=== PATIENT | female | born 1995 | race Caucasian/White ===

== ENCOUNTER 2019-12-04 18:30 | Emergency (ER) | payer MEDICAID ==
[~2019-12-04] VITALS: Ht 160 cm; Wt 77.3 kg
[2019-12-04] MEDS ORDERED: ondansetron 4mg rapidly disintigrating tab PO ONE (19:05)
[2019-12-04] MEDS ORDERED: ibuprofen tablet 400 MG TABLET PO ONE (19:05)
[2019-12-04] MEDS ORDERED: ibuprofen 200mg tablet PO ONE (19:10)
[2019-12-04 19:46] LABS: BASOPHILS % (AUTO) 0.3 % (0-1); EOSINOPHILS % (AUTO) 0 % (0-6); HEMATOCRIT 42.4 % (35.0-45.0); HEMOGLOBIN 14.3 g/dl (12.0-16.0); LYMPHOCYTES # (AUTO) 1.5 X10'3 (1.1-4.8); LYMPHOCYTES % (AUTO) 10.2 % (21-51); MEAN CORPUSCULAR HGB CONC 33.6 g/dL (33.0-36.5); MEAN CORPUSCULAR VOLUME 83.3 FL (78-98); MEAN PLATELET VOLUME 8.2 FL (7.4-10.4); MONOCYTES # (AUTO) 1.6 X10'3 (0-0.9); MONOCYTES % (AUTO) 10.7 % (2-12); NEUTROPHILS # (AUTO) 11.5 X10'3 (1.8-7.7); NEUTROPHILS % (AUTO) 78.8 % (42-75); PLATELET COUNT 179 X10'3 (140-440); RED BLOOD COUNT 5.09 X10'6 (4.20-5.60); RED CELL DISTRIBUTION WIDTH 14.8 % (11.5-14.5); WHITE BLOOD COUNT 14.7 X10'3 (4.5-11.0)
[2019-12-04 19:51] LABS: CLARITY,URINE CLEAR (Clear); GLUCOSE, URINE NEGATIVE (Neg); KETONES,URINE >=80 mg/dl (Neg); LEUKOCYTE ESTERASE ,URINE SMALL (Neg); NITRITES, URINE POSITIVE (Neg); OCCULT BLOOD,URINE MODERATE (Neg); PH,URINE 5.5 (4.8-8.0); PROTEIN,URINE 30 mg/dl (Neg)
[2019-12-04 19:52] LABS: URINE HCG NEGATIVE (NEG)
[2019-12-04 19:53] LABS: COLOR,URINE DARK YELLOW (Yellow); UA COLLECTION TYPE CLN CATCH MIDSTREAM
[2019-12-04 20:01] LABS: SQUAMOUS EPITHELIAL CELL,UR MODERATE /LPF (FEW)
[2019-12-04 20:02] LABS: ALANINE AMINOTRANSFERASE 17 U/L (12-78); ALBUMIN 4.3 G/DL (3.4-5.0); ALKALINE PHOSPHATASE 58 IU/L (46-116); ANION GAP 15 (8-16); ASPARTATE AMINO TRANSFERASE 12 U/L (10-37); BACTERIA,URINE 2+ /HPF (Neg); BILIRUBIN,TOTAL 2.2 MG/DL (0.1-1.0); BLOOD UREA NITROGEN 13 MG/DL (7-18); BUN/CREATININE RATIO 13.1 (6.6-38.0); CALCIUM 9.4 MG/DL (8.5-10.1); CHLORIDE 97 MMOL/L (99-107); CREATININE 0.99 MG/DL (0.40-0.90); GLUCOSE 101 MG/DL (70-104); LIPASE 70 U/L (73-393); MUCUS STRANDS MODERATE /LPF (Neg); POTASSIUM 3.8 MMOL/L (3.5-5.1); SODIUM 135 MMOL/L (135-145); TOTAL CARBON DIOXIDE 23.4 MMOL/L (24-32); TOTAL PROTEIN 8.6 G/DL (6.4-8.2); WBC,URINE 50-100 /HPF (0-4); eGFR 70 ML/MIN
[2019-12-04 20:03] LABS: WBC CLUMPS,URINE FEW /HPF (NEGATIVE)
[2019-12-04] MEDS ORDERED: CefTRIAXone 2gm/D5W 50ml BAG 50 ML IV ONE (20:15)
[2019-12-04] MEDS ORDERED: normal saline 1000ML IV soln IVB ONE (20:15)
[2019-12-04] MEDS ORDERED: CEPH500C5 PO (20:15)
[2019-12-04] MEDS ORDERED: ONDA4TAB6 PO (20:16)
[2019-12-04] MEDS ORDERED: CIPR-230 PO (20:27)
--- NOTE | 2019-12-04 20:30 | NUR ---
PT MOVED FROM FAST TRACK TO MAIN ER BED 14 AND PLACED IN AIRBORN ISOLATION FOR R/O COVID. PT HAS ORDERS TO RECEIVE ROCEFIN AND 1 LITER NS, AND THEN WILL BE DC READY
--- NOTE | 2019-12-04 20:46 | NUR ---
1 LITER NS INFUSING , BOLUS, AND ROCEFIN. PT UPDATED SHE WILL BE READY FOR DC LIKELY WITHIN 45 MINUTES. PT IS POLITE AND COOPERATIVE. DROPPED OFF FOOD FOR HER.
--- NOTE | 2019-12-04 20:49 | NUR ---
PT REPORTS SHE IS HAVING NO SYMPTOMS AT ALL AT THIS TIME.
[2019-12-04 20:50] VITALS: BP 117/78
== END 2019-12-04 21:33 | disposition home or self-care (01) ==
LOC: ER 18:31
DX: J06.9 Acute upper respiratory infection, unspecified (principal); B34.9 Viral infection, unspecified; R05 Cough; R50.9 Fever, unspecified; R11.2 Nausea with vomiting, unspecified; N39.0 Urinary tract infection, site not specified; Z20.828 Contact with and (suspected) exposure to other viral communicable diseases; F17.200 Nicotine dependence, unspecified, uncomplicated; Z72.89 Other problems related to lifestyle; Z79.2 Long term (current) use of antibiotics; Z79.899 Other long term (current) drug therapy
CPT/HCPCS: 36415; 71045; 80053; 81001; 81025; 83605; 83690; 84145; 85025; 87040; 87077; 87088; 87186; 87635; 96365; 99284; J0696; J7030

== ENCOUNTER 2020-06-04 18:02 | Emergency (ER) | payer MEDICAID ==
[~2020-06-04] VITALS: Ht 157.5 cm; Wt 75.0 kg
[~2020-06-04 18:02] MED LIST: ONDA4TAB6 PO
[2020-06-04 18:11] VITALS: BP 136/82
== END 2020-06-04 21:31 | disposition left against medical advice (07) ==
LOC: ER 18:04
DX: R42 Dizziness and giddiness (principal); Z53.21 Procedure and treatment not carried out due to patient leaving prior to being seen by health care provider
CPT/HCPCS: 82948

== ENCOUNTER 2022-05-11 03:35 | Emergency (ER) | payer MEDICAID ==
[2022-05-11] VITALS (9 sets, daily range): BP systolic 104–133; BP diastolic 61–80
[~2022-05-11] VITALS: Ht 162.6 cm; Wt 36.4 kg
[2022-05-11 04:51] LABS: BASOPHILS # (AUTO) 0.1 X10'3 (0-0.2); BASOPHILS % (AUTO) 0.7 % (0-1); EOSINOPHILS # (AUTO) 0.1 X10'3 (0-0.9); EOSINOPHILS % (AUTO) 1.1 % (0-6); HEMATOCRIT 39.6 % (35.0-45.0); HEMOGLOBIN 13.5 g/dl (12.0-16.0); LYMPHOCYTES % (AUTO) 22.7 % (21-51); MEAN CORPUSCULAR HEMOGLOBIN 28.1 PG (27.0-31.0); MEAN CORPUSCULAR VOLUME 82.6 FL (78-98); MEAN PLATELET VOLUME 7.8 FL (7.4-10.4); MONOCYTES # (AUTO) 0.8 X10'3 (0-0.9); MONOCYTES % (AUTO) 9.4 % (2-12); NEUTROPHILS # (AUTO) 5.9 X10'3 (1.8-7.7); NEUTROPHILS % (AUTO) 66.1 % (42-75); PLATELET COUNT 201 X10'3 (140-440); RED CELL DISTRIBUTION WIDTH 13.9 % (11.5-14.5)
[2022-05-11 04:56] LABS: CLARITY,URINE CLEAR (Clear); COLOR,URINE YELLOW (Yellow); GLUCOSE, URINE NEGATIVE (Neg); KETONES,URINE NEGATIVE (Neg); LEUKOCYTE ESTERASE ,URINE NEGATIVE (Neg); NITRITES, URINE NEGATIVE (Neg); OCCULT BLOOD,URINE NEGATIVE (Neg); PH,URINE 5.5 (4.8-8.0); PROTEIN,URINE NEGATIVE (Neg); URINE HCG NEGATIVE (NEG); UROBILINOGEN,URINE 0.2 E.U/dL (0.2-1.0)
[2022-05-11 05:03] LABS: ALANINE AMINOTRANSFERASE 14 U/L (12-78); ALBUMIN 4.2 G/DL (3.4-5.0); ALBUMIN/GLOBULIN RATIO 1.2 (1.1-1.5); ALKALINE PHOSPHATASE 56 IU/L (46-116); ANION GAP 10 (8-16); ASPARTATE AMINO TRANSFERASE 14 U/L (10-37); BILIRUBIN,TOTAL 0.5 MG/DL (0.1-1.0); CALCIUM 8.9 MG/DL (8.5-10.1); CHLORIDE 106 MMOL/L (99-107); GLUCOSE 99 MG/DL (70-104); LIPASE 80 U/L (73-393); POTASSIUM 3.9 MMOL/L (3.5-5.1); SODIUM 141 MMOL/L (135-145); TOTAL CARBON DIOXIDE 25.1 MMOL/L (24-32); TOTAL PROTEIN 7.6 G/DL (6.4-8.2); eGFR > 90 ML/MIN
[2022-05-11 05:08] LABS: BLOOD UREA NITROGEN 14 MG/DL (7-18)
[2022-05-11] MEDS ORDERED: ondansetron/PF 4mg/2ml inj IV ONE ×2 (05:10→13:55)
[2022-05-11] MEDS ORDERED: morphine 4 MG/ML inj SYRINge IV ONE ×2 (05:10→13:55)
[2022-05-11 05:20] LABS: UA COLLECTION TYPE CLN CATCH MIDSTREAM
--- NOTE | 2022-05-11 09:10 | NUR ---
Pt c/o 11/15 RLQ pain. She has an appy planned. Her last Zofran and Morphine were at 0515. Sent Dr. Soriano a page to request an additional order of pain med at 0910.
--- NOTE | 2022-05-11 13:49 | NUR ---
received phone call from patient significant other, reviewed chart based on his complaint of patient not having received pain medication, notified dr weinberg who will write order for medications.
[2022-05-11] MEDS ORDERED: morphine 2 MG/ML inj. syringe IV PRN (16:35)
[2022-05-11] MEDS ORDERED: morphine 4 MG/ML inj SYRINge IV PRN (16:35)
[2022-05-11] MEDS ORDERED: ondansetron/PF 4mg/2ml inj IV PRN (16:35)
[2022-05-11] MEDS ORDERED: proCHLORperazine 10 MG/2 ml inj IV PRN (16:35)
[2022-05-11] MEDS ORDERED: fentaNYL/PF 50MCG/1 ML 2ML syringe ONE (16:35)
[2022-05-11] MEDS ORDERED: meperidine/PF 25mg/ml syringe IV PRN ×3 (16:35)
[2022-05-11] MEDS ORDERED: ringers solution, lacted 1,000 ML IV SCH (16:35)
[2022-05-11] MEDS ORDERED: propofol inj 20 ML IV ONE (16:36)
[2022-05-11] MEDS ORDERED: midazolam 1 mg/ML 2ml injection ONE (16:36)
[2022-05-11] MEDS ORDERED: BUPIVAcaine/PF 2.5 mg/ml (0.25%) 30ml vial ONE (16:38)
[2022-05-11] MEDS ORDERED: sevoflurane 250ml liquid IH ONE (16:52)
[2022-05-11] MEDS ORDERED: dexamethasone sod phosphate 4mg/ml inj. ONE (17:09)
[2022-05-11] MEDS ORDERED: ceFOXitin 1000 MG inj ONE ×2 (17:09)
[2022-05-11] MEDS ORDERED: ondansetron/PF 4mg/2ml inj ONE (17:29)
[2022-05-11] MEDS ORDERED: BUPIVAcaine/PF 2.5 mg/ml (0.25%) 30ml vial IJ ONE (17:41)
[2022-05-11] MEDS ORDERED: sugammadex 200mg/2ml injection IV ONE (17:49)
--- NOTE | 2022-05-11 18:02 | NUR ---
Received from OR via [facility], accompanied by Anesthesiologist DR SHAFFER and report given by Anesthesiolgist. PT PRESENTS WITH PIC 20G LEFT AC, 2 LAP SITES WITH DERMABOND CDI, VSS. Addendum: 05/11/22 at 1819 by Lilian Weinstein RN, RN Amended: Links added.
[2022-05-11] MEDS ORDERED: HYDROcodone/acetaminophen 10/325mg tab PO ONE (18:35)
--- NOTE | 2022-05-11 19:22 | NUR ---
ABLE TO SAFELY AMBULATE AND TRANSFER SELF. IV TAKEN OUT WITHOUT ANY COMPLICATIONS. ALL DISCHARGE INSTRUCTIONS COVERED WITH PATIENT AND ALL QUESTIONS ANSWERED. PATIENT TAKEN OUT VIA WHEELCHAIR TO PERSONAL VEHICLE WHERE FAMILY/FRIEND DROVE PATIENT HOME. Addendum: 05/11/22 at 1945 by Lilian Weinstein RN, RN Amended: Links added.
== END 2022-05-11 19:22 | disposition home or self-care (01) ==
LOC: ER 03:36
DX: K35.80 Unspecified acute appendicitis (principal); Z72.89 Other problems related to lifestyle; Z79.899 Other long term (current) drug therapy
CPT/HCPCS: 36415; 44970; 74176; 80053; 81003; 81025; 83690; 85025; 96374; 96375; 96376; 99285; J0694; J1100; J2175; J2250; J2270; J2405; J2704; J3010; J3490; J7030; J7120; Z7506; Z7508; Z7512; A4215; A4618; A7000

== ENCOUNTER 2023-09-02 14:51 | Emergency (ER) | payer MEDICAID ==
[~2023-09-02] VITALS: Ht 157.5 cm; Wt 81.7 kg
[2023-09-02] MEDS ORDERED: diphenhydrAMINE 50 mg/ml inj IM ONE (15:20)
[2023-09-02] MEDS: metoclopramide 5 mg/ml inj IM ONE (16:24)
[2023-09-02] MEDS: ketorolac trometh. 30mg/ml inj. IM ONE (16:26)
[2023-09-02] MEDS: dexamethasone sod phosphate 10mg/ml inj IM STA (16:27)
[2023-09-02] MEDS: diphenhydrAMINE 25mg capsule PO ONE (16:29)
[2023-09-02] MEDS: HYDROcodone/acetaminophen 5mg/325mg tablet PO ONE (16:29)
[2023-09-02 16:40] VITALS: BP 123/83; PULSE 86; RESP 16; TEMP 97.7; O2SAT 96
== END 2023-09-02 16:41 | disposition home or self-care (01) ==
LOC: ER 14:52
DX: R51.9 Headache, unspecified (principal); R11.2 Nausea with vomiting, unspecified; R42 Dizziness and giddiness; Z79.899 Other long term (current) drug therapy; Z72.89 Other problems related to lifestyle
CPT/HCPCS: 70450; 96372; 99285; J1100; J1885; J2765; Q0163

== ENCOUNTER 2024-05-26 00:49 | Emergency (ER) | payer MEDICAID ==
[~2024-05-26] VITALS: Ht 157.5 cm; Wt 67.0 kg
[2024-05-26 01:24] LABS: BASOPHILS % (AUTO) 0.6 % (0-1); EOSINOPHILS % (AUTO) 0.8 % (0-6); HEMATOCRIT 40.5 % (35.0-45.0); HEMOGLOBIN 13.9 g/dl (12.0-16.0); LYMPHOCYTES # (AUTO) 1.7 X10'3 (1.1-4.8); LYMPHOCYTES % (AUTO) 31.8 % (21-51); MEAN CORPUSCULAR HEMOGLOBIN 27.9 PG (27.0-31.0); MEAN CORPUSCULAR HGB CONC 34.4 g/dL (33.0-36.5); MEAN CORPUSCULAR VOLUME 81.2 FL (78-98); MEAN PLATELET VOLUME 7.7 FL (7.4-10.4); MONOCYTES # (AUTO) 0.7 X10'3 (0-0.9); MONOCYTES % (AUTO) 13.7 % (2-12); NEUTROPHILS # (AUTO) 2.8 X10'3 (1.8-7.7); NEUTROPHILS % (AUTO) 53.1 % (42-75); PLATELET COUNT 186 X10'3 (140-440); RED BLOOD COUNT 4.98 X10'6 (4.20-5.60); RED CELL DISTRIBUTION WIDTH 13.6 % (11.5-14.5); WHITE BLOOD COUNT 5.4 X10'3 (4.5-11.0)
[2024-05-26 01:41] LABS: ALANINE AMINOTRANSFERASE 15 U/L (12-78); ALBUMIN 3.8 G/DL (3.4-5.0); ALKALINE PHOSPHATASE 54 IU/L (46-116); ANION GAP 10 (8-16); ASPARTATE AMINO TRANSFERASE 12 U/L (10-37); BILIRUBIN,TOTAL 0.7 MG/DL (0.1-1.0); BLOOD UREA NITROGEN 12 MG/DL (7-18); CALCIUM 8.6 MG/DL (8.5-10.1); CHLORIDE 102 MMOL/L (99-107); CREATININE 0.63 MG/DL (0.40-0.90); GLUCOSE 91 MG/DL (70-104); POTASSIUM 4.3 MMOL/L (3.5-5.1); SODIUM 137 MMOL/L (135-145); TOTAL CARBON DIOXIDE 24.7 MMOL/L (24-32); TOTAL PROTEIN 7.5 G/DL (6.4-8.2); eCRCL 106 ML/MIN; eGFR > 90 ML/MIN
[2024-05-26 01:48] LABS: PRO BRAIN NATRIURETIC PEPTIDE 36 PG/ML (0-125)
[2024-05-26] MEDS: ringers solution, lacted 1,000 ML IV ONE (03:21)
[2024-05-26] MEDS: ketorolac trometh 15mg/ml vial 15 MG/ML ML IV ONE (03:25)
[2024-05-26] MEDS: dexamethasone 4mg/ml inj IV ONE (03:26)
[2024-05-26 03:34] LABS: D-DIMER 0.51 MG/L FEU (0-0.50)
[2024-05-26] MEDS: albuterol 2.5 MG/3 ML nebule NEB ONE (03:41)
[2024-05-26 03:42] VITALS: PULSE 91; RESP 13; O2SAT 97
[2024-05-26 03:53] VITALS: PULSE 119; RESP 22; O2SAT 97
[2024-05-26] MEDS ORDERED: iohexol 350MG/ML 100ml bottle IV ONE (04:17)
[2024-05-26] MEDS ORDERED: PRED20TA PO (05:12)
[2024-05-26] MEDS ORDERED: ONDA-243 PO (05:12)
[2024-05-26] MEDS ORDERED: ALBU8HFA INH (05:13)
[2024-05-26] MEDS ORDERED: AZIT250T12 PO (05:14)
[2024-05-26] MEDS ORDERED: AMOX-580 PO (05:16)
[2024-05-26] MEDS: azithromycin 250mg tablet PO ONE (05:39)
[2024-05-26 05:50] VITALS: BP 120/71; PULSE 98; RESP 18; TEMP 97.5; O2SAT 99
== END 2024-05-26 05:57 | disposition home or self-care (01) ==
LOC: ER 00:50
DX: J40 Bronchitis, not specified as acute or chronic (principal); Z79.899 Other long term (current) drug therapy; Z72.89 Other problems related to lifestyle
CPT/HCPCS: 36415; 71045; 71275; 80053; 83880; 84484; 85025; 85379; 93005; 94640; 96361; 96374; 96375; 99285; J1100; J1885; J7120; Q9967; 94760

== ENCOUNTER 2024-12-14 06:26 | Emergency (ER) | payer MEDICAID ==
[~2024-12-14] VITALS: Ht 157.5 cm; Wt 78.1 kg
[~2024-12-14 06:26] MED LIST changes: +ONDA-243 PO
[2024-12-14 06:31] VITALS: TEMP 97
[2024-12-14 06:53] LABS: URINE HCG NEGATIVE (NEG)
[2024-12-14 06:55] LABS: LEUKOCYTE ESTERASE ,URINE NEGATIVE (Neg); NITRITES, URINE NEGATIVE (Neg); OCCULT BLOOD,URINE NEGATIVE (Neg)
[2024-12-14 06:57] LABS: UA COLLECTION TYPE CLN CATCH MIDSTREAM
[2024-12-14 07:29] LABS: MEAN PLATELET VOLUME 7.9 FL (7.4-10.4); RED CELL DISTRIBUTION WIDTH 13.2 % (11.5-14.5)
[2024-12-14 07:48] LABS: CREATININE 0.59 MG/DL (0.40-0.90); TOTAL CARBON DIOXIDE 26.3 MMOL/L (24-32); eCRCL 112 ML/MIN; eGFR > 90 ML/MIN
--- NOTE | 2024-12-14 08:00 | Physician Documentation ---
History of Present Illness Chief Complaint: Flank Pain Stated Complaint: ABD PAIN Time Seen by MD: 06:47 Primary Medical Doctor: ERIN [facility] Mode of Arrival: Ambulatory HPI 29 year old female reports several days of sharp RLQ pelvic pain. These pains have been intermittent for several months, last a few days, and then disappear. She had an appendectomy about 6 months ago and is concerned that it might be related to this. Her last menstrual period was a little over a week ago. Medication Reconciliation Allergies: Coded Allergies: No Known Allergies (Unverified , 12/14/24) Scheduled Ondansetron Hcl (Zofran), 1 TAB PO Q6H Scheduled PRN ONDANSETRON ODT 4mg tablet (Ondansetron Odt), 1 TAB PO Q6H PRN PRN for nausea/vomiting Past Medical History Past Medical History: No Pertinent History Past Surgical History: noncontributory Alcohol Use: Occasionally Drug Use: none Review of Systems All Other Systems at this time: Reviewed and Negative Physical Exam Vital Signs: RN Vital Signs have been reviewed: Yes, Temperature: 97.0, Source: Temporal, Heart Rate: 92, Respiratory Rate: 15, BP: 135/99, Pulse Oximetry: 97, Weight: 78.100 Oxygen Flow Rate: 0 Physical Exam Gen: no distress HEENT: NCAT, EOMI, PERRL, MMM Pulm: no distress Cardiac: deferred Abdomen: soft, mildly TTP RLQ, ND MSK: no deformity Neuro: nonfocal Skin: w/d/i Psych: unremarkable Progress Results/Orders Results/Orders Completed Orders - NORMA EMERY MD Urinalysis, Cult If Indicated (12/14/24 06:41) Hcg, Ur Ql (12/14/24 06:41) Cbc/Diff (12/14/24 07:06) BMP (12/14/24 07:06) Lipase (12/14/24 07:06) CMP (12/14/24 07:06) Vital Signs 12/14/24 12/14/24 12/14/24 06:31 06:52 06:57 Temp 97.0 Pulse 74 92 Resp 18 15 15 B/P (MAP) 134/92 135/99 (111) Pulse Ox 96 97 O2 Flow Rate 0 Laboratory Tests Test 12/14/24 06:42 12/14/24 07:19 Urine Specimen Description Cln catch midstream Urine Color Yellow Urine Clarity Clear Urine pH 7.0 Urine Specific [place] 1.020 Urine Protein Negative Urine Glucose (UA) Negative Urine Ketones Negative Urine Occult Blood Negative Urine Nitrite Negative Urine Bilirubin Negative Urine Urobilinogen 0.2 Urine Leukocyte Esterase Negative Urine Culture Indicated Not ind Volume Urine Centrifuged 10 ml Urine HCG, Qualitative Negative Urine Comment White Blood Count 6.5 Red Blood Count 4.56 Hemoglobin 13.1 Hematocrit 37.9 Mean Corpuscular Volume 83.1 Mean Corpuscular Hemoglobin 28.7 Mean Corpuscular Hemoglobin Concent 34.6 Red Cell Distribution Width 13.2 Platelet Count 198 Mean Platelet Volume 7.9 Neutrophils (%) (Auto) 54.1 Lymphocytes (%) (Auto) 37.6 Monocytes (%) (Auto) 6.9 Eosinophils (%) (Auto) 0.5 Basophils (%) (Auto) 0.9 Neutrophils # (Auto) 3.5 Lymphocytes # (Auto) 2.4 Monocytes # (Auto) 0.4 Eosinophils # (Auto) 0.0 Basophils # (Auto) 0.1 CBC Comment Sodium Level 139 Potassium Level 4.8 Chloride Level 105 Carbon Dioxide Level 26.3 Anion Gap 8 Blood Urea Nitrogen 13 Creatinine 0.59 Estimated GFR/1.73 m2 > 90 BUN/Creatinine Ratio 22.0 H Glucose Level 94 Calcium Level 8.5 Total Bilirubin 0.5 Aspartate Amino Transf (AST/SGOT) 18 Alanine Aminotransferase (ALT/SGPT) 8 L Alkaline Phosphatase 41 L Total Protein 7.3 Albumin 4.2 Globulin 3.1 Albumin/Globulin Ratio 1.4 Lipase 40 Chemistry Comments Medical Decision Making Additional information obtaine: N/A Findings 29 year old female with RLQ pain but benign vitals. Already s/p appendectomy. Labs including CBC/CMP/hCG/UA unremarkable. Likely ovarian cyst given timing and intermittent nature of this pain. Unlikely ovarian torsion given level of pain. NSAID return precautions. Differential Dx:Considerations: Other Additional Comments ddx = gallbladder pathology, kidney stone, UTI, pyelonephritis, ovarian cyst, pancreatitis, ectopic , ovarian torsion Departure Disposition: HOME / SELF CARE / HOMELESS Impression: Primary Impression: Abdominal pain Condition: Stable Discharge Instructions: Abdominal Pain, Adult Referrals: NO PRIMARY CARE PROVIDER (PCP) Education Educated: Patient Educated regarding: diagnosis, treatment, prognosis, need for follow up Signature Scribe Signature: . Attestation: . ONRMA EMERY MD Dec 14, 2024 08:00
[2024-12-14] MEDS: ketorolac trometh 30MG/ML vial 30 MG/ML VIAL IM ONE (08:10)
[2024-12-14 08:24] VITALS: BP 127/91; PULSE 69; RESP 15; O2SAT 98
== END 2024-12-14 08:28 | disposition home or self-care (01) ==
LOC: ER 06:28
DX: R10.31 Right lower quadrant pain (principal)
CPT/HCPCS: 36415; 80053; 81003; 81025; 83690; 85025; 96372; 99283; J1885